=== PATIENT | female | born 1955 | race Caucasian/White ===

== ENCOUNTER 2016-10-13 19:26 | Observation (INO) ==
[2016-10-13] MEDS ORDERED: Ondansetron 4 MG/2 ML VIAL IVP ONE (20:35)
[2016-10-13] MEDS ORDERED: *HR* Morphine 2 MG/ML SYRINGE IVP ONE (20:35)
[2016-10-13] MEDS ORDERED: 0.9 % Sodium Chloride 1,000 ML IVC ONE (20:35)
[2016-10-13] MEDS ORDERED: MetroNIDAZOLE 500 MG/100 ML 500 MG/100 ML BAG IVPB ONE (20:36)
--- NOTE | 2016-10-13 20:39 | Emergency Department Note ---
Disposition Clinical Impression: Diverticulitis Disposition: Admitted As Inpatient Condition: Critical General Adult HPI - General Chief complaint: ED Abdominal Pain Stated complaint: abd pain Time Seen by Provider: 10/13/16 20:34 Source: patient Limitations: no limitations - History of Present Illness Pain Scale: 7 - Related Data Home Medications Medication Instructions Recorded Confirmed Aspirin 81 mg PO DAILY 02/01/16 10/13/16 Gabapentin [Neurontin] 400 mg PO BID 02/01/16 10/13/16 Levothyroxine [Synthroid] 50 mcg PO DAILY 02/01/16 10/13/16 Lisinopril [Zestril] 10 mg PO DAILY 02/01/16 10/13/16 Oxycodone HCl/Acetaminophen 1 tab PO BID PRN 02/01/16 10/13/16 [Percocet 5-325 mg Tablet] Venlafaxine XR (24 HR) [Effexor Xr] 300 mg PO DAILY 02/01/16 10/13/16 Albuterol Sulfate [Ventolin Hfa] 2 puff IH Q4H PRN 02/03/16 10/13/16 Cholecalciferol (Vitamin D3) 5,000 unit PO DAILY 02/03/16 10/13/16 [Vitamin D3] Cyclobenzaprine [Flexeril] 10 mg PO TID PRN 02/03/16 10/13/16 Insulin NPH Hum/Reg Insulin Hm 50 unit SQ BID 02/03/16 10/13/16 [Novolin 70-30 100 Unit/ml Vial] Omeprazole [PriLOSEC] 40 mg PO DAILY 02/03/16 10/13/16 Vitamin B Complex 1 each PO DAILY 02/03/16 10/13/16 Albuterol Neb [Proventil Neb] 2.5 mg IH TID PRN 06/29/16 10/13/16 LORazepam [Ativan] 0.5 mg PO BID PRN 06/29/16 10/13/16 Docusate [Colace] 100 mg PO DAILY 10/13/16 10/13/16 Pioglitazone HCl [Actos] 45 mg PO DAILY 10/13/16 10/13/16 Allergies Allergy/AdvReac Type Severity Reaction Status Date / Time ibuprofen Allergy Hives Verified 02/01/16 23:52 Penicillins [PCN] Allergy Hives Verified 02/01/16 23:52 Lsykxit-Rqc-Wey Reductase Allergy See Verified 10/13/16 19:54 Inhibitor Comments [Statins] Sulfa (Sulfonamide Allergy Hives Verified 02/01/16 23:52 Antibiotics) Nortriptyline [From Pamelor] AdvReac Agitated Verified 02/01/16 23:52 simvastatin [From Zocor] AdvReac Muscle Pain Verified 02/01/16 23:52 Past Medical History - Past Medical History Medical history: Reports: COPD, diabetes, fibromyalgia, hyperlipidemia, thyroid disease Surgical history: Reports: herniorrhaphy, hysterectomy Psychiatric history: Reports: depression LOAN REPRESENTATIVE history: Reports: no LOAN REPRESENTATIVE history - Social History Smoking Status: Former smoker Smokeless Tobacco Status: No Alcohol use: Reports: none Drug use: Reports: none Physical Exam - General Limitations: no limitations General appearance: alert, in no apparent distress Course Vital Signs Temperature 97.6 F 10/13/16 19:51 Pulse Rate 95 10/13/16 19:51 Respiratory Rate 18 10/13/16 19:51 Blood Pressure 128/72 10/13/16 19:51 O2 Sat by Pulse Oximetry 97 10/13/16 19:51 Temperature 97.6 F 10/13/16 19:51 Pulse Rate 86 10/13/16 20:53 Respiratory Rate 18 10/13/16 20:53 Blood Pressure 159/98 10/13/16 20:53 O2 Sat by Pulse Oximetry 96 10/13/16 20:53 Oxygen Delivery Oxygen Delivery Room Air Medical Decision Making - Lab Data Result diagrams: 10/13/16 21:39 10/13/16 21:39 Lab Results 10/13/16 10/13/16 Range/Units 21:39 21:39 WBC 7.4 (4.3-11.1) K/mcL RBC 4.74 (3.82-4.97) M/mcL Hgb 13.4 (11.5-15.4) g/dL Hct 41.4 (35.3-44.9) % MCV 87.3 (83.0-100.0) fL MCH 28.3 (28.0-33.3) pg MCHC 32.4 (31.6-35.5) g/dL RDW 13.2 (11.5-14.5) % Plt Count 269 (140-400) K/mcL MPV 9.3 L (9.4-12.4) fL Immature Gran % 0.3 (0-4) % Seg Neutrophils % 65.2 % Lymphocytes % 21.6 % Monocytes % 9.8 % Eosinophils % 2.7 % Basophils % 0.4 % Neutrophils # 4.8 (1.6-8.9) K/mcL Lymphocytes # 1.6 (0.6-4.6) K/mcL Monocytes # 0.7 (0.0-1.3) K/mcL Eosinophils # 0.2 (0.0-0.6) K/mcL Basophils # 0.0 (0.0-0.2) K/mcL Sodium 140 (136-145) mEq/L Potassium 4.1 (3.5-4.5) mEq/L Chloride 105 (98-109) mEq/L Carbon Dioxide 28 (19-29) mEq/L BUN 16 (7-20) mg/dL Creatinine 0.73 (0.57-1.11) mg/dL Est GFR ( Amer) > 60 (> 60) Est GFR (Non-Af Amer) > 60 (> 60) BUN/Creatinine Ratio 22 (6-26) Glucose 59 L (70-99) mg/dL Calculated Osmolality 289 (280-300) Calcium 9.5 (8.6-10.8) mg/dL Total Bilirubin 0.3 (0.2-1.2) mg/dL Direct Bilirubin 0.1 (0.0-0.5) mg/dL Indirect Bilirubin 0.2 (0.0-1.2) mg/dL AST 15 (5-34) Units/L ALT 13 (0-55) Units/L Alkaline Phosphatase 93 (38-126) Units/L Serum Total Protein 6.8 (6.0-8.3) g/dL Albumin 3.1 L (3.5-5.0) g/dL Globulin 3.7 H (2.4-3.5) g/dL Albumin/Globulin Ratio 0.8 L (1.1-2.2) Lipase 9 (8-78) Units/L Attestation Statement - Attestation Attestation: I examined this patient and my medical decision-making was reviewed with the TANKAGE GRINDER/PA/Advanced Practice Nurse/Resident Physician. I agree with the documented findings, disposition and treatment plan as described except to the extent set forth below. [id number] time provided Patient presents with left lower quadrant abdominal pain. She has a known history of diverticulosis and diverticulitis. She appears mildly uncomfortable but nontoxic on exam
--- NOTE | 2016-10-13 21:05 | Emergency Department Note ---
Disposition Clinical Impression: Diverticulitis Qualifiers: Diverticulitis site: large intestine Diverticulitis bleeding: without bleeding Diverticulitis complication: without perforation or abscess Qualified Code(s): K57.32 - Diverticulitis of large intestine without perforation or abscess without bleeding Disposition: Admitted As Inpatient Condition: Critical Referrals: Zeyad Jules MD [Primary Care Provider] - Forms: ED Satisfaction Letter, Work/School Release Abdominal Pain HPI - General Chief Complaint: ED Abdominal Pain Stated Complaint: abd pain Time Seen by Provider: 10/13/16 20:34 Source: patient Nursing Notes Reviewed: Yes Vital Signs Reviewed: Yes - History of Present Illness HPI Narrative: Ms. Bran, a 60yo female, presents from home which he complained of abdominal pain. Onset 4 days ago. Localized left lower quadrant and migrating across her lower abdomen. Described as a constant sharp stabbing. Worsened with bowel movement and deterioration. Patient was instructed by her GI doctor to never Valsalva as she has a history of diverticulitis with microperforation. Patient states this episode feels identical to previous episodes of diverticulitis. Gum Remover: Dr. Souza. PMH: DM II, EMILY on BiPap. Admits: Left lower quadrant pain. Denies: Fever, chills, change in appetite, melena, hematochezia, spotting on toilet tissue, chest pain, palpitations, back pain, nausea, vomiting. Pain Scale: 7 - Related Data Home Medications Medication Instructions Recorded Confirmed Aspirin 81 mg PO DAILY 02/01/16 06/29/16 Gabapentin [Neurontin] 400 mg PO BID 02/01/16 06/29/16 Krill Oil 500 mg PO BID 02/01/16 06/29/16 LORazepam [Ativan] 0.5 mg PO TID PRN 02/01/16 06/29/16 Levothyroxine [Synthroid] 50 mcg PO DAILY 02/01/16 06/29/16 Lisinopril [Zestril] 10 mg PO DAILY 02/01/16 06/29/16 Oxycodone HCl/Acetaminophen 1 tab PO BID PRN MDD with 02/01/16 06/29/16 [Percocet 5-325 mg Tablet] occasional 3rd tablet Venlafaxine XR (24 HR) [Effexor Xr] 300 mg PO DAILY 02/01/16 06/29/16 Albuterol Sulfate [Ventolin Hfa] 2 puff IH Q4H PRN 02/03/16 06/29/16 Cholecalciferol (Vitamin D3) 5,000 unit PO DAILY 02/03/16 06/29/16 [Vitamin D3] Cyclobenzaprine [Flexeril] 10 mg PO TID PRN 02/03/16 06/29/16 Exenatide Microspheres [Bydureon] 2 mg SQ QWEEK 02/03/16 06/29/16 Insulin NPH Hum/Reg Insulin Hm 40 unit SQ QPM 02/03/16 06/29/16 [Novolin 70-30 100 Unit/ml Vial] Insulin NPH Hum/Reg Insulin Hm 50 unit SQ QAM 02/03/16 06/29/16 [Novolin 70-30 100 Unit/ml Vial] Omeprazole [PriLOSEC] 40 mg PO DAILY 02/03/16 06/29/16 Vitamin B Complex 1 each PO DAILY 02/03/16 06/29/16 Albuterol Neb [Proventil Neb] 2.5 mg IH AD PRN 06/29/16 06/29/16 LORazepam [Ativan] 0.5 mg PO BID PRN 06/29/16 06/29/16 Previous Rx's Medication Instructions Recorded Ciprofloxacin HCl [Cipro] 500 mg PO BID #24 tab 02/04/16 Docusate [Colace] 100 mg PO BID PRN #60 capsule 02/04/16 Omeprazole 20 mg PO QDPC #21 tablet. 05/02/16 Ondansetron ODT [Zofran ODT] 4 mg SL Q6HR PRN #14 tab.rapdis 05/02/16 Allergies Allergy/AdvReac Type Severity Reaction Status Date / Time ibuprofen Allergy Hives Verified 02/01/16 23:52 Penicillins [PCN] Allergy Hives Verified 02/01/16 23:52 Jebpgqq-Tno-Nkg Reductase Allergy See Verified 10/13/16 19:54 Inhibitor Comments [Statins] Sulfa (Sulfonamide Allergy Hives Verified 02/01/16 23:52 Antibiotics) Nortriptyline [From Pamelor] AdvReac Agitated Verified 02/01/16 23:52 simvastatin [From Zocor] AdvReac Muscle Pain Verified 02/01/16 23:52 All systems ED: reviewed and negative except as stated. (As per history of present illness.) Abdominal Pain PMH - Past Medical History Medical history: Reports: COPD, diabetes, fibromyalgia, hyperlipidemia, thyroid disease Female Surgical History: Reports: appendectomy, hysterectomy DOOR CLAMP OPERATOR history: Reports: no DOOR CLAMP OPERATOR history Psychiatric history: Reports: depression - Social History Smoking status: Former smoker Alcohol use: Reports: none Drug use: Reports: none Physical Exam General: Patient is alert, oriented, and in no acute distress. HEENT: No facial asymmetry. Head is normocephalic and atraumatic. Trachea midline. Cardiovascular: Heart regular rate and rhythm without clicks, rubs, gallops, or murmurs. No JVD. PMI nondisplaced. Respiratory: Symmetric chest rise with good respiratory effort. Bilateral breath sounds are clear without wheezing, crackles, or rhonchi. Abdomen: Obese. Bowel sounds present normoactive x-4 quadrants. Abdomen is soft, nondistended. Abdominal tenderness most prominent in left lower quadrant with extension into the hypogastrium. Unable to assess for organomegaly given patient's body habitus. Psych: Patient's affect is appropriate for situation. - General Limitations: no limitations General appearance: alert, in no apparent distress Course Course Narrative: A chart review, patient is not had any imaging of her abdomen in some time. I am concerned given her history of microperforations. We will CT her abdomen and pelvis without contrast at this time. We will also provide IV rehydration, IV analgesia, and begin empiric antibiotics. Will also continue workup for other abdominal pathologies. Patient's lab work does not show leukocytosis. CT scan shows sigmoid diverticulitis without abscess. Abdomen/Pelvis CT 10/13/16 20:38 IMPRESSION: 1. Acute proximal sigmoid diverticulitis. No abscess. 2. Cholelithiasis. D/ / 10/13/2016 21:31:26 Bolivar Banks MD / sadie Interpreting Provider: Bolivar Banks MD Patient's pain is moderately controlled with IV medications. I have clinical concern is she has a history of diverticulitis with microperforation. After speaking with the patient, together we came to the decision for admission. I spoke with the admitting hospitalist,Dr. Acuña, agrees to accept the patient. At the request of Dr. Acuña, will add Levaquin to her Flagyl. Vital Signs Temperature 97.6 F 10/13/16 19:51 Pulse Rate 95 10/13/16 19:51 Respiratory Rate 18 10/13/16 19:51 Blood Pressure 128/72 10/13/16 19:51 O2 Sat by Pulse Oximetry 97 10/13/16 19:51 Temperature 97.6 F 10/13/16 19:51 Pulse Rate 86 10/13/16 20:53 Respiratory Rate 18 10/13/16 20:53 Blood Pressure 159/98 10/13/16 20:53 O2 Sat by Pulse Oximetry 96 10/13/16 20:53 Oxygen Delivery Oxygen Delivery Room Air Abdominal Pain - Lab Data Result diagrams: 10/13/16 21:39 10/13/16 21:39 Lab Results 10/13/16 10/13/16 Range/Units 21:39 21:39 WBC 7.4 (4.3-11.1) K/mcL RBC 4.74 (3.82-4.97) M/mcL Hgb 13.4 (11.5-15.4) g/dL Hct 41.4 (35.3-44.9) % MCV 87.3 (83.0-100.0) fL MCH 28.3 (28.0-33.3) pg MCHC 32.4 (31.6-35.5) g/dL RDW 13.2 (11.5-14.5) % Plt Count 269 (140-400) K/mcL MPV 9.3 L (9.4-12.4) fL Immature Gran % 0.3 (0-4) % Seg Neutrophils % 65.2 % Lymphocytes % 21.6 % Monocytes % 9.8 % Eosinophils % 2.7 % Basophils % 0.4 % Neutrophils # 4.8 (1.6-8.9) K/mcL Lymphocytes # 1.6 (0.6-4.6) K/mcL Monocytes # 0.7 (0.0-1.3) K/mcL Eosinophils # 0.2 (0.0-0.6) K/mcL Basophils # 0.0 (0.0-0.2) K/mcL Sodium 140 (136-145) mEq/L Potassium 4.1 (3.5-4.5) mEq/L Chloride 105 (98-109) mEq/L Carbon Dioxide 28 (19-29) mEq/L BUN 16 (7-20) mg/dL Creatinine 0.73 (0.57-1.11) mg/dL Est GFR ( Amer) > 60 (> 60) Est GFR (Non-Af Amer) > 60 (> 60) BUN/Creatinine Ratio 22 (6-26) Glucose 59 L (70-99) mg/dL Calculated Osmolality 289 (280-300) Calcium 9.5 (8.6-10.8) mg/dL Total Bilirubin 0.3 (0.2-1.2) mg/dL Direct Bilirubin 0.1 (0.0-0.5) mg/dL Indirect Bilirubin 0.2 (0.0-1.2) mg/dL AST 15 (5-34) Units/L ALT 13 (0-55) Units/L Alkaline Phosphatase 93 (38-126) Units/L Serum Total Protein 6.8 (6.0-8.3) g/dL Albumin 3.1 L (3.5-5.0) g/dL Globulin 3.7 H (2.4-3.5) g/dL Albumin/Globulin Ratio 0.8 L (1.1-2.2) Lipase 9 (8-78) Units/L
[2016-10-13 21:58] LABS: Basophils % 0.4 %; Eosinophils # 0.2 K/mcL (0.0-0.6); Eosinophils % 2.7 %; Hematocrit 41.4 % (35.3-44.9); Hemoglobin 13.4 g/dL (11.5-15.4); Immature Granulocytes % 0.3 % (0-4); Lymphocytes # 1.6 K/mcL (0.6-4.6); Lymphocytes % 21.6 %; Mean Corpuscular HGB Conc 32.4 g/dL (31.6-35.5); Mean Corpuscular Hemoglobin 28.3 pg (28.0-33.3); Mean Corpuscular Volume 87.3 fL (83.0-100.0); Mean Platelet Volume 9.3 fL (9.4-12.4); Monocytes # 0.7 K/mcL (0.0-1.3); Monocytes % 9.8 %; Neutrophils # 4.8 K/mcL (1.6-8.9); Platelet Count 269 K/mcL (140-400); Red Blood Count 4.74 M/mcL (3.82-4.97); Red Cell Distribution Width 13.2 % (11.5-14.5); Segmented Neutrophils % 65.2 %
[2016-10-13 22:09] LABS: Alanine Aminotransferase 13 Units/L (0-55); Albumin 3.1 g/dL (3.5-5.0); Albumin/Globulin Ratio 0.8 (1.1-2.2); Alkaline Phosphatase 93 Units/L (38-126); Aspartate Amino Transferase 15 Units/L (5-34); BUN/Creatinine Ratio 22 (6-26); Bilirubin,Direct 0.1 mg/dL (0.0-0.5); Bilirubin,Indirect 0.2 mg/dL (0.0-1.2); Bilirubin,Total 0.3 mg/dL (0.2-1.2); Blood Urea Nitrogen 16 mg/dL (7-20); Calcium 9.5 mg/dL (8.6-10.8); Carbon Dioxide 28 mEq/L (19-29); Chloride 105 mEq/L (98-109); Globulin 3.7 g/dL (2.4-3.5); Glucose 59 mg/dL (70-99); Lipase 9 Units/L (8-78); Osmolality,Calculated 289 (280-300); Potassium 4.1 mEq/L (3.5-4.5); Sodium 140 mEq/L (136-145); Total Protein 6.8 g/dL (6.0-8.3); eGFR For African Americans > 60 (> 60); eGFR For Non-African Americans > 60 (> 60)
[2016-10-13] MEDS ORDERED: Levofloxacin 750 MG/150 ML 750 MG/150 ML BAG IVPB ONE (22:31)
[2016-10-13] MEDS ORDERED: Acetaminophen 325 MG TABLET PO PRN (23:31)
[2016-10-13] MEDS ORDERED: Ondansetron 4 MG/2 ML VIAL IVP PRN (23:31)
[2016-10-13] MEDS ORDERED: *HR* Promethazine 25 MG/ML VIAL IVP PRN (23:31)
[2016-10-13] MEDS ORDERED: Naloxone 0.4 MG/ML INJ IVP PRN (23:31)
[2016-10-13] MEDS ORDERED: *HR* Morphine 2 MG/ML SYRINGE IVP PRN (23:31)
[2016-10-13] MEDS ORDERED: D5% in 0.45% NACL 1,000 ML IVC SCH (23:45)
[2016-10-14] MEDS: Acetaminophen IV 1,000 MG/100 ML INFUS..BTL IVPB SCH ×4 (00:53→18:01)
[2016-10-14] MEDS ORDERED: D5% in Water 1,000 ML IV PRN ×2 (01:13→03:18)
[2016-10-14] MEDS ORDERED: *HR* Dextrose 50 % in Water (Syg) 50 ML SYRINGE IVP PRN ×2 (01:13→03:18)
[2016-10-14] MEDS ORDERED: Dextrose Gel 15 GM PO PRN ×4 (01:13→03:18)
[2016-10-14] MEDS: D5% in 0.9% NACL 1,000 ML IVC SCH ×2 (01:30→13:13)
--- NOTE | 2016-10-14 03:05 | Internal Med History&Physical ---
Date of Encounter: 10/13/16 Time of Encounter: 22:40 Assessment and Plan (1) Diverticulitis Current visit: Yes Status: Acute We will treat the patient on Levaquin and Flagyl. Pain control. Bowel rest. We will consult general surgery for further evaluation for possible need for colectomy due to frequent and recurring bouts of diverticulitis. She is at high risk for morbidity mortality and complications due to treatment with IV opiates for pain control. Qualifiers: Diverticulitis site: large intestine Diverticulitis bleeding: without bleeding Diverticulitis complication: without perforation or abscess Qualified Code(s): K57.32 - Diverticulitis of large intestine without perforation or abscess without bleeding (2) DVT prophylaxis Current visit: No Status: Acute Subcutaneous Lovenox. (3) Peripheral sensory neuropathy due to type 2 diabetes mellitus Current visit: No Status: Acute He is insulin Levemir and sliding scale. (4) COPD (chronic obstructive pulmonary disease) Current visit: No Status: Chronic Inhaled albuterol. Qualifiers: COPD type: unspecified COPD Qualified Code(s): J44.9 - Chronic obstructive pulmonary disease, unspecified (5) Diabetes mellitus, type II Current visit: No Status: Chronic Low-dose insulin Levemir and low-dose sliding scale while the patient is nothing by mouth. Qualifiers: Diabetes mellitus complication status: with neurologic complications Diabetes mellitus complication detail: with polyneuropathy Diabetes mellitus residential insulin use: with termite technician use Qualified Code(s): E11.42 - Type 2 diabetes mellitus with diabetic polyneuropathy (6) EMILY on CPAP Current visit: No Status: Chronic Resume her home CPAP regimen. Internal Medicine - H&P: HPI Chief complaint: Abdominal pain Admitted From: Emergency Dept Plans for Post Hospital Care: Home History of present illness: Ms. Bran is a 60 year old female with multiple medical comorbidities who presented to the hospital for evaluation of lower abdominal pain which she describes as sharp moderate to severe progressive over the last 4 days associated with nausea no vomiting diarrhea blood in the stool. She reports associated chills but no fever. Today the pain was 10/10 and she decided to come to the hospital. She has had similar pain in the past when she had diverticulitis which she did have 3 times last year. A 10 point review of systems was performed pertinent positives as above additionally positive for chronic shortness of breath, dyspnea on exertion positive for decreased sensation secondary to neuropathy. Family history reviewed and found to be noncontributory. Past Med Surg Social Fam HX - Past Medical History Medical history: COPD, diabetes, fibromyalgia, hyperlipidemia, thyroid disease Psychiatric history: depression - Past Surgical History Surgical History: herniorrhaphy, hysterectomy - Social History Smoking Status: Former smoker Smokeless Tobacco Status: No Alcohol use: none Drug use: none - Family History Mother Living Status: Hx Family Cardiac Disorders: Yes (heart disease) Hx Family Respiratory Disorders: Yes (copd) Hx Family Cancer: Yes (renal ca) Hx Family GI Disorders: No Internal Medicine - H&P: Meds Aspirin 81 mg PO DAILY 02/01/16 [History] Gabapentin [Neurontin] 400 mg PO BID 02/01/16 [History] Levothyroxine [Synthroid] 50 mcg PO DAILY 02/01/16 [History] Lisinopril [Zestril] 10 mg PO DAILY 02/01/16 [History] Oxycodone HCl/Acetaminophen [Percocet 5-325 mg Tablet] 1 tab PO BID PRN [History] Venlafaxine XR (24 HR) [Effexor Xr] 300 mg PO DAILY 02/01/16 [History] Albuterol Sulfate [Ventolin Hfa] 2 puff IH Q4H PRN 02/03/16 [History] Cholecalciferol (Vitamin D3) [Vitamin D3] 5,000 unit PO DAILY 02/03/16 [History] Cyclobenzaprine [Flexeril] 10 mg PO TID PRN 02/03/16 [History] Insulin NPH Hum/Reg Insulin Hm [Novolin 70-30 100 Unit/ml Vial] 50 unit SQ BID 02/03/16 [History] Omeprazole [PriLOSEC] 40 mg PO DAILY 02/03/16 [History] Vitamin B Complex 1 each PO DAILY 02/03/16 [History] Albuterol Neb [Proventil Neb] 2.5 mg IH TID PRN 06/29/16 [History] LORazepam [Ativan] 0.5 mg PO BID PRN 06/29/16 [History] Docusate [Colace] 100 mg PO DAILY 10/13/16 [History] Pioglitazone HCl [Actos] 45 mg PO DAILY 10/13/16 [History] Allergies ibuprofen Allergy (Verified 02/01/16 23:52) Hives Penicillins [PCN] Allergy (Verified 02/01/16 23:52) Hives Ozbejnu-Uyh-Srm Reductase Inhibitor [Statins] Allergy (Verified 10/13/16 19:54) See Comments Sulfa (Sulfonamide Antibiotics) Allergy (Verified 02/01/16 23:52) Hives Nortriptyline [From Pamelor] Adverse Reaction (Verified 02/01/16 23:52) Agitated simvastatin [From Zocor] Adverse Reaction (Verified 02/01/16 23:52) Muscle Pain All Systems PM: A 10-system review of systems was performed and is negative for pertinent findings except as documented above in the HPI. - Constitutional Vitals: Temp Pulse Resp BP Pulse Ox 97.5 F L 88 14 97/56 97 10/14/16 00:55 10/14/16 00:55 10/14/16 00:55 10/14/16 00:55 10/14/16 00:55 - Respiratory Respiratory exam: Present: CTAB. Absent: accessory muscle use, rales, rhonchi, wheezes - Cardiovascular Cardiovascular exam: Present: RRR, +S1, +S2. Absent: diastolic murmur, gallop, rubs, systolic murmur - GI/Abdominal GI/Abdominal exam: Present: normal bowel sounds, soft, tenderness, no peritoneal signs. Absent: distended - Extremities Exam Extremities exam: Present: warm, radial pulses palpable and symetrical. Absent : calf tenderness, cyanotic, pedal edema - Neurological Exam Neurological exam: Present: CN II-XII intact, oriented X3, no focal deficits. Absent: pronater drift, facial droop, speech deficit - Skin Skin exam: Present: dry, intact Internal Med - H&P Results - Labs CBC & Chem 7: 10/13/16 21:39 10/13/16 21:39 - Impressions Her old recurrence patient had a colonoscopy in June 2016 which showed colonic diverticuli and one small polyp was removed. No evidence of gross inflammation of the time.
[2016-10-14] MEDS ORDERED: *HR* OxyCODONE/APAP 5/325 TABLET PO PRN (03:20)
[2016-10-14] MEDS ORDERED: *HR* LORazepam 0.5 MG TABLET PO PRN (03:20)
[2016-10-14] MEDS ORDERED: Albuterol 2.5 MG/3 ML NEBULIZER IH PRN (03:20)
[2016-10-14 04:15] LABS: Bilirubin,Urine Negative (Negative); Blood,Urine Negative (Negative); Clarity,Urine Clear (Clear); Color,Urine Yellow (Yellow); Glucose,Urine (UA) Normal (Normal); Ketones,Urine Negative (Negative); Leukocyte Esterase,Urine Negative (Negative); Nitrite,Urine Negative (Negative); PH,Urine 5.5 pH Units (5.0-8.0); Protein,Urine Negative (Neg-Trace); Specific Gravity,Urine >= 1.030 (1.010-1.025); Urobilinogen,Urine Normal (Normal)
[2016-10-14] MEDS: Insulin LISPRO 300 UNITS/3 ML VIAL SQ SCH ×3 (05:53→17:34)
[2016-10-14 06:09] LABS: Basophils % 0.4 %; Eosinophils # 0.1 K/mcL (0.0-0.6); Hematocrit 39.1 % (35.3-44.9); Hemoglobin 12.5 g/dL (11.5-15.4); Immature Granulocytes % 0.5 % (0-4); Lymphocytes # 1.2 K/mcL (0.6-4.6); Lymphocytes % 15.5 %; Mean Corpuscular Hemoglobin 28.7 pg (28.0-33.3); Mean Corpuscular Volume 89.7 fL (83.0-100.0); Mean Platelet Volume 9.6 fL (9.4-12.4); Monocytes # 0.6 K/mcL (0.0-1.3); Monocytes % 7.5 %; Neutrophils # 5.9 K/mcL (1.6-8.9); Platelet Count 246 K/mcL (140-400); Red Blood Count 4.36 M/mcL (3.82-4.97); Red Cell Distribution Width 13.2 % (11.5-14.5); Segmented Neutrophils % 75.1 %
[2016-10-14 06:19] LABS: Hemoglobin A1C 6.9 %
[2016-10-14 06:21] LABS: BUN/Creatinine Ratio 19 (6-26); Blood Urea Nitrogen 14 mg/dL (7-20); Calcium 8.7 mg/dL (8.6-10.8); Carbon Dioxide 31 mEq/L (19-29); Chloride 105 mEq/L (98-109); Glucose 106 mg/dL (70-99); Magnesium 1.8 mg/dL (1.6-2.6); Osmolality,Calculated 291 (280-300); Potassium 4.6 mEq/L (3.5-4.5); Sodium 140 mEq/L (136-145); eGFR For African Americans > 60 (> 60); eGFR For Non-African Americans > 60 (> 60)
[2016-10-14] MEDS: Aspirin 81 MG TAB.CHEW PO SCH (08:58)
[2016-10-14] MEDS: Gabapentin 400 MG CAPSULE PO SCH ×2 (08:59→21:16)
[2016-10-14] MEDS: MetroNIDAZOLE 500 MG/100 ML 500 MG/100 ML BAG IVPB SCH ×2 (08:59→16:25)
[2016-10-14] MEDS: Venlafaxine XR (24 HR) 150 MG CAP.ER.24H PO SCH (08:59)
[2016-10-14] MEDS ORDERED: Levofloxacin 750 MG/150 ML 750 MG/150 ML BAG IVPB SCH (09:00)
[2016-10-14] MEDS: Insulin DETEMIR 100 UNIT/ML X5UNITS SQ SCH (09:03)
--- NOTE | 2016-10-14 10:18 | Internal Med Progress Note ---
Date of Encounter: 10/14/16 Time of Encounter: 10:16 - Assessment and plan (1) Diverticulitis Current Visit: Yes Status: Acute Assessment and plan: Improving slowly. Continue IV Levaquin and Flagyl. Keep nothing by mouth for now, ice chips that allowed and continue IV hydration. Plan to start clear liquid diet later today if symptoms are better controlled. Patient noted to undergo recent colonoscopy about 3 months back that showed diverticulosis with no active bleeding and a colonic polyp that was removed. Surgery has been consulted, will follow-up recommendations. Qualifiers: Diverticulitis site: large intestine Diverticulitis bleeding: without bleeding Diverticulitis complication: without perforation or abscess Qualified Code(s): K57.32 - Diverticulitis of large intestine without perforation or abscess without bleeding (2) Depression Current Visit: Yes Status: Chronic Qualifiers: Depression Type: unspecified Qualified Code(s): F32.9 - Major depressive disorder, single episode, unspecified (3) Morbid obesity Current Visit: Yes Status: Chronic Qualifiers: Obesity type: due to excess calories Qualified Code(s): E66.01 - Morbid ( severe) obesity due to excess calories (4) COPD (chronic obstructive pulmonary disease) Current Visit: Yes Status: Chronic Assessment and plan: Not noted to be in acute exacerbation. Continue as needed bronchodilators and supplemental oxygen. Physical and occupational therapy evaluation. Qualifiers: COPD type: unspecified COPD Qualified Code(s): J44.9 - Chronic obstructive pulmonary disease, unspecified (5) Diabetes mellitus, type II Current Visit: Yes Status: Chronic Assessment and plan: Accu-Chek blood glucose monitoring with basal bolus insulin regimen. Diabetic diet when tolerated. Qualifiers: Diabetes mellitus complication status: with neurologic complications Diabetes mellitus complication detail: with polyneuropathy Diabetes mellitus medical terminologist insulin use: with fdc use Qualified Code(s): E11.42 - Type 2 diabetes mellitus with diabetic polyneuropathy (6) EMILY on CPAP Current Visit: Yes Status: Chronic - Subjective Interval history: Feels better; improving abdominal pain; no nausea, vomiting, diarrhea; - Constitutional Vitals: Temp Pulse Resp BP Pulse Ox 97.7 F 79 16 99/76 99 10/14/16 07:54 10/14/16 07:54 10/14/16 08:24 10/14/16 07:54 10/14/16 08:24 General appearance: Present: A&O X 3, morbidly obese, answers questions appropriately - Respiratory Respiratory exam: Present: CTAB. Absent: accessory muscle use, rales, rhonchi, wheezes - Cardiovascular Cardiovascular exam: Present: RRR, +S1, +S2. Absent: diastolic murmur, gallop, rubs, systolic murmur - GI/Abdominal GI/Abdominal exam: Present: normal bowel sounds, soft (obese, tenderness in LLQ ; no guarding/rigidity), no peritoneal signs. Absent: distended, tenderness - Extremities Exam Extremities exam: Present: full ROM, warm, radial pulses palpable and symetrical. Absent: calf tenderness, cyanotic, pedal edema Internal Medicine: Result - Labs CBC & Chem 7: 10/14/16 05:03 10/14/16 05:03 Labs: Short CBC 10/14/16 Range/Units 05:03 WBC 7.9 (4.3-11.1) K/mcL Hgb 12.5 (11.5-15.4) g/dL Hct 39.1 (35.3-44.9) % Plt Count 246 (140-400) K/mcL Neutrophils # 5.9 (1.6-8.9) K/mcL BMP 10/14/16 05:03 Sodium 140 Potassium 4.6 H Chloride 105 Carbon Dioxide 31 H BUN 14 Creatinine 0.72 Glucose 106 H Calcium 8.7 Urine 10/14/16 Range/Units 02:46 Urine Color Yellow (Yellow) Urine Clarity Clear (Clear) Urine pH 5.5 (5.0-8.0) pH Units Ur Specific [place] >= 1.030 H (1.010-1.025) Urine Protein Negative (Neg-Trace) mg/dL Urine Glucose (UA) Normal (Normal) mg/dL Consult Discharge Plan - Plan Referrals: Zeyad Jules MD [Primary Care Provider] -
--- NOTE | 2016-10-14 13:27 | General Surgery Consult Note ---
Date of Encounter: 10/14/16 Time of Encounter: 13:00 Assessment and Plan (1) Diverticulitis Current Visit: Yes Status: Acute Treat with conservative approach- no urgent surgical intervention indicated at this time May give clear liquids with diabetic modifications IV antibiotics- levaquin and flagyl Supportive care and pain control Serial abdominal exams Will need outpatient follow-up in surgery office (requesting Dr. Tatum) Consider interval colonoscopy in 6-8 weeks Qualifiers: Diverticulitis site: large intestine Diverticulitis bleeding: without bleeding Diverticulitis complication: without perforation or abscess Qualified Code(s): K57.32 - Diverticulitis of large intestine without perforation or abscess without bleeding (2) Diabetes mellitus, type II Current Visit: Yes Status: Chronic controlled management per medicine service Qualifiers: Diabetes mellitus complication status: with neurologic complications Diabetes mellitus complication detail: with polyneuropathy Diabetes mellitus retirement insulin use: with retirement use Qualified Code(s): E11.42 - Type 2 diabetes mellitus with diabetic polyneuropathy (3) Morbid obesity Current Visit: Yes Status: Chronic Qualifiers: Obesity type: due to excess calories Qualified Code(s): E66.01 - Morbid ( severe) obesity due to excess calories (4) EMILY on CPAP Current Visit: Yes Status: Chronic (5) Chronic back pain Current Visit: No Status: Chronic Qualifiers: Back pain location: low back pain Back pain laterality: midline Sciatica presence: without sciatica Qualified Code(s): M54.5 - Low back pain History of Present Illness Consult date: 10/14/16 Reason for consult: other (Diverticulitis) Requesting physician: Hao Batres History of present illness: Ms. Bran is a 60 year old female with a past medical history significant for type 2 diabetes mellitus, hyperlipidemia, anxiety/depression, fibromyalgia, obesity, arthritis, GERD, neuropathy, mitral valve prolapse, osteoarthritis, hypothyroidism, acute diverticulitis, sleep apnea, DDD. She presents to the hospital with a 4 to five-day history of left lower quadrant abdominal pain. She states that she has had pain similar to this in the past and it was associated with diverticulitis. This is her second hospitalization related to diverticulitis. Last hospitalized in January of 2016 and is s/p EGD/colonoscopy with Dr. Souza in June of 2016. She reports have a total of 4-5 episodes similar to this in the past 1 year. Admits to nausea but denies any vomiting. Denies any changes in bowel movements. Last bowel movement yesterday. Denies any melena or hemaochezia. Denies any fevers but does admit to chills. Denies any difficulty with urination. She has had a CT scan which shows evidence of diverticulitis of the sigmoid colon without abscess or perforation. We have been asked to see and evaluate the patient for recommendations. Past Med Surg Social Fam HX - Past Medical History Source: old records reviewed Medical history: COPD, diabetes (Type 2), fibromyalgia, GERD, hyperlipidemia, thyroid disease (hypothyroidism), other (fibromyalgia, obesity, OA, neuropathy, chronic pain syndrome, diverticulitis, mitral valve prolapse, DDD, sleep apnea) Psychiatric history: anxiety, depression - Past Surgical History Surgical History: herniorrhaphy (left inguinal), hysterectomy, orthopedic, other (back surgery, bilateral knee arthroscopy), other (EGD/Colonoscopy 2015 (Dr. Souza)) - Social History Smoking Status: Former smoker Smokeless Tobacco Status: No Alcohol use: none Drug use: none - Family History Mother Living Status: Hx Family Cardiac Disorders: Yes (heart disease) Hx Family Respiratory Disorders: Yes (copd) Hx Family Cancer: Yes (renal ca) Hx Family GI Disorders: No Medications and Allergies Aspirin 81 mg PO DAILY 02/01/16 [History] Gabapentin [Neurontin] 400 mg PO BID 02/01/16 [History] Levothyroxine [Synthroid] 50 mcg PO DAILY 02/01/16 [History] Lisinopril [Zestril] 10 mg PO DAILY 02/01/16 [History] Oxycodone HCl/Acetaminophen [Percocet 5-325 mg Tablet] 1 tab PO BID PRN [History] Venlafaxine XR (24 HR) [Effexor Xr] 300 mg PO DAILY 02/01/16 [History] Albuterol Sulfate [Ventolin Hfa] 2 puff IH Q4H PRN 02/03/16 [History] Cholecalciferol (Vitamin D3) [Vitamin D3] 5,000 unit PO DAILY 02/03/16 [History] Cyclobenzaprine [Flexeril] 10 mg PO TID PRN 02/03/16 [History] Insulin NPH Hum/Reg Insulin Hm [Novolin 70-30 100 Unit/ml Vial] 50 unit SQ BID 02/03/16 [History] Omeprazole [PriLOSEC] 40 mg PO DAILY 02/03/16 [History] Vitamin B Complex 1 each PO DAILY 02/03/16 [History] Albuterol Neb [Proventil Neb] 2.5 mg IH TID PRN 06/29/16 [History] LORazepam [Ativan] 0.5 mg PO BID PRN 06/29/16 [History] Docusate [Colace] 100 mg PO DAILY 10/13/16 [History] Pioglitazone HCl [Actos] 45 mg PO DAILY 10/13/16 [History] Allergies ibuprofen Allergy (Verified 02/01/16 23:52) Hives Penicillins [PCN] Allergy (Verified 02/01/16 23:52) Hives Abdwagk-Jhw-Nza Reductase Inhibitor [Statins] Allergy (Verified 10/13/16 19:54) See Comments Sulfa (Sulfonamide Antibiotics) Allergy (Verified 02/01/16 23:52) Hives Nortriptyline [From Pamelor] Adverse Reaction (Verified 02/01/16 23:52) Agitated simvastatin [From Zocor] Adverse Reaction (Verified 02/01/16 23:52) Muscle Pain Review of Systems All systems PM: reviewed and no additional remarkable complaints except as stated (in the HPI) All systems PM: A 10-system review of systems was performed and is negative for pertinent findings except as documented above in the HPI. General Surgery Exam Initial Vital Signs Temp Pulse Resp BP Pulse Ox 97.6 F 95 18 128/72 97 10/13/16 19:51 10/13/16 19:51 10/13/16 19:51 10/13/16 19:51 10/13/16 19:51 - General physical appearance well developed, well nourished, no distress, obese - Eyes normal ocular movement - ENT normal mucosa, atraumatic, normocephalic - Neck trachea midline - Respiratory normal respiratory effort, clear to auscultation - Cardiovascular Cardiovascular exam: Present: RRR - Abdomen Abdomen general surgery: Present: bowel sounds present, soft, tender Abdominal Tenderness: Present: LLQ - Integumentary Integumentary general surgery: Present: warm and dry - Neurologic Present: CN 2-12 grossly intact - Psychiatric Psychiatric general surgery: Present: appropriate, oriented to person, oriented to place, oriented to time, speech is normal, memory intact Exam Initial Vital Signs Temp Pulse Resp BP Pulse Ox 97.6 F 95 18 128/72 97 10/13/16 19:51 10/13/16 19:51 10/13/16 19:51 10/13/16 19:51 10/13/16 19:51 Results - Labs 10/14/16 05:03 10/14/16 05:03 Abnormal lab results Potassium 4.6 mEq/L (3.5-4.5) H 10/14/16 05:03 Carbon Dioxide 31 mEq/L (19-29) H 10/14/16 05:03 Glucose 106 mg/dL (70-99) H 10/14/16 05:03 POC Glucose 113 (58-89) H 10/14/16 12:13 Hemoglobin A1c 6.9 % (-5.6) H 10/14/16 05:03 Albumin 3.1 g/dL (3.5-5.0) L 10/13/16 21:39 Globulin 3.7 g/dL (2.4-3.5) H 10/13/16 21:39 Albumin/Globulin Ratio 0.8 (1.1-2.2) L 10/13/16 21:39 Ur Specific [place] >= 1.030 (1.010-1.025) H 10/14/16 02:46 Diabetes panel 10/14/16 10/14/16 Range/Units 05:03 05:03 Sodium 140 (136-145) mEq/L Potassium 4.6 H (3.5-4.5) mEq/L Chloride 105 (98-109) mEq/L Carbon Dioxide 31 H (19-29) mEq/L BUN 14 (7-20) mg/dL Creatinine 0.72 (0.57-1.11) mg/dL Glucose 106 H (70-99) mg/dL Hemoglobin A1c 6.9 H ( - 5.6) % Calcium 8.7 (8.6-10.8) mg/dL Calcium panel 10/14/16 Range/Units 05:03 Calcium 8.7 (8.6-10.8) mg/dL Pituitary panel 10/14/16 Range/Units 05:03 Sodium 140 (136-145) mEq/L Potassium 4.6 H (3.5-4.5) mEq/L Chloride 105 (98-109) mEq/L Carbon Dioxide 31 H (19-29) mEq/L BUN 14 (7-20) mg/dL Creatinine 0.72 (0.57-1.11) mg/dL Glucose 106 H (70-99) mg/dL Calcium 8.7 (8.6-10.8) mg/dL Adrenal panel 10/14/16 Range/Units 05:03 Sodium 140 (136-145) mEq/L Potassium 4.6 H (3.5-4.5) mEq/L Chloride 105 (98-109) mEq/L Carbon Dioxide 31 H (19-29) mEq/L BUN 14 (7-20) mg/dL Creatinine 0.72 (0.57-1.11) mg/dL Glucose 106 H (70-99) mg/dL Calcium 8.7 (8.6-10.8) mg/dL All other labs normal. - Imaging CT scan - abdomen: report reviewed CT scan - pelvis: report reviewed Additional studies: Abdomen/Pelvis CT 10/13/16 20:38 IMPRESSION: 1. Acute proximal sigmoid diverticulitis. No abscess. 2. Cholelithiasis. D/ / 10/13/2016 21:31:26 Bolivar Banks MD / sadie Interpreting Provider: Bolivar Banks MD Consult Discharge Plan - Plan Additional Instructions: Low residue diet for 6 weeks Referrals: Zeyad Jules MD [Primary Care Provider] - Jostin Tatum MD [Partnered Physician] - 10/28/16 2:05 pm (hospital follow- up) - Attending Attestation I examined this patient and my medical decision-making was reviewed with the BUTTON SEWING MACHINE OPERATOR/PA/Advanced Practice Nurse/Resident Physician. I agree with the documented findings, disposition and treatment plan as described except to the extent set forth below.
[2016-10-14] MEDS ORDERED: Levofloxacin 500 MG/100 ML 500 MG/100 ML BAG IVPB SCH (21:00)
[2016-10-15] MEDS: Insulin LISPRO 300 UNITS/3 ML VIAL SQ SCH ×2 (00:11→06:11)
[2016-10-15] MEDS: Insulin DETEMIR 100 UNIT/ML X5UNITS SQ SCH ×2 (00:11→09:54)
[2016-10-15] MEDS: MetroNIDAZOLE 500 MG/100 ML 500 MG/100 ML BAG IVPB SCH ×3 (00:12→10:25)
[2016-10-15] MEDS: D5% in 0.9% NACL 1,000 ML IVC SCH (04:03)
[2016-10-15 06:15] LABS: BUN/Creatinine Ratio 9 (6-26); Blood Urea Nitrogen 7 mg/dL (7-20); Calcium 8.9 mg/dL (8.6-10.8); Carbon Dioxide 29 mEq/L (19-29); Chloride 101 mEq/L (98-109); Glucose 140 mg/dL (70-99); Magnesium 1.6 mg/dL (1.6-2.6); Osmolality,Calculated 286 (280-300); Phosphorous 3.6 mg/dL (2.3-4.7); Potassium 3.6 mEq/L (3.5-4.5); Sodium 138 mEq/L (136-145); eGFR For African Americans > 60 (> 60); eGFR For Non-African Americans > 60 (> 60)
[2016-10-15] MEDS: Venlafaxine XR (24 HR) 150 MG CAP.ER.24H PO SCH (09:44)
[2016-10-15] MEDS: Aspirin 81 MG TAB.CHEW PO SCH (09:44)
[2016-10-15] MEDS: Gabapentin 400 MG CAPSULE PO SCH (09:44)
[2016-10-15 10:18] VITALS: BP 142/72
[2016-10-15] MEDS ORDERED: metroNIDAZOLE 500 MG TABLET PO ONE (10:23)
--- NOTE | 2016-10-15 10:26 | General Surgery Progress Note ---
Date of Encounter: 10/15/16 Time of Encounter: 10:23 - Assessment and Plan (1) Diverticulitis Current Visit: Yes Status: Acute Advance to low residue diet and continue for the next 6 weeks Transition to oral antibiotics for the next 10 days F/U as scheduled in the outpatient surgery office with Dr. Tatum- see instructions Qualifiers: Diverticulitis site: large intestine Diverticulitis bleeding: without bleeding Diverticulitis complication: without perforation or abscess Qualified Code(s): K57.32 - Diverticulitis of large intestine without perforation or abscess without bleeding (2) Diabetes mellitus, type II Current Visit: Yes Status: Chronic Qualifiers: Diabetes mellitus complication status: with neurologic complications Diabetes mellitus complication detail: with polyneuropathy Diabetes mellitus [facility] insulin use: with regional intermodal truck driver use Qualified Code(s): E11.42 - Type 2 diabetes mellitus with diabetic polyneuropathy (3) Morbid obesity Current Visit: Yes Status: Chronic Qualifiers: Obesity type: due to excess calories Qualified Code(s): E66.01 - Morbid ( severe) obesity due to excess calories (4) EMILY on CPAP Current Visit: Yes Status: Chronic (5) Chronic back pain Current Visit: No Status: Chronic Qualifiers: Back pain location: low back pain Back pain laterality: midline Sciatica presence: without sciatica Qualified Code(s): M54.5 - Low back pain Subjective Patient reports: no new complaints, feels better, still having pain, pain is less, tolerating liquids well, voiding w/o difficulty, flatus, afebrile Objective Vital Signs - Last 8 Hours Temp Pulse Resp BP Pulse Ox 10/15/16 10:13 98.9 F 87 17 142/72 96 10/15/16 07:33 18 93 L 10/15/16 06:41 99.2 F 62 17 122/63 98 10/15/16 04:41 16 97 10/15/16 04:40 98.9 F 96 18 124/77 94 L Intake and Output 10/14/16 10/15/16 10/15/16 23:59 07:59 15:59 Intake Total 1120 / 1120 2160 / 2160 1220 / 1220 Output Total 500 / 500 2100 / 2100 0 / 0 Balance 620 / 620 60 / 60 1220 / 1220 Intake: IV Fluids 200 / 200 1100 / 1100 500 / 500 D5% And 0.9% Nacl 1000 Ml 1000 / 1000 500 / 500 1,000 ML @ 100 mls/hr IVC .Q10H JENNIE Rx#: [id number] Levaquin 500mg/100mL 500 100 / 100 mg In 100 ml @ 100 mls/hr IVPB Q24H JENNIE Rx#: [id number] Flagyl 500 MG/100 ML 500 100 / 100 100 / 100 mg In 100 ml @ 100 mls/hr IVPB Q8HR JENNIE Rx#: [id number] Oral 920 / 920 1060 / 1060 720 / 720 Output: Urine 500 / 500 2100 / 2100 0 / 0 Other: Meal ice chips Breakfast # Voids 1 Weight 133.4 kg Blood Glucose* 136 115 Patient Weight 10/15/16 23:59 Weight 133.4 kg - General physical appearance well developed, well nourished, no distress - Eyes normal ocular movement - ENT normal mucosa, atraumatic, normocephalic - Neck Neck exam: trachea midline - Respiratory normal respiratory effort, clear to auscultation - Cardiovascular Cardiovascular exam: Present: RRR - Abdomen Abdomen: Present: bowel sounds present, soft, tender (minimal, LLQ) Abdominal Tenderness: LLQ - Integumentary no rash, no growths - Neurologic CN 2-12 grossly intact - Musculoskeletal normal gait, normal posture - Psychiatric oriented to time, oriented to person, oriented to place, speech is normal, memory intact - Labs 10/14/16 05:03 10/15/16 05:24 Diabetes panel 10/15/16 Range/Units 05:24 Sodium 138 (136-145) mEq/L Potassium 3.6 D (3.5-4.5) mEq/L Chloride 101 (98-109) mEq/L Carbon Dioxide 29 (19-29) mEq/L BUN 7 (7-20) mg/dL Creatinine 0.75 (0.57-1.11) mg/dL Glucose 140 H (70-99) mg/dL Calcium 8.9 (8.6-10.8) mg/dL Calcium panel 10/15/16 Range/Units 05:24 Calcium 8.9 (8.6-10.8) mg/dL Phosphorus 3.6 (2.3-4.7) mg/dL Pituitary panel 10/15/16 Range/Units 05:24 Sodium 138 (136-145) mEq/L Potassium 3.6 D (3.5-4.5) mEq/L Chloride 101 (98-109) mEq/L Carbon Dioxide 29 (19-29) mEq/L BUN 7 (7-20) mg/dL Creatinine 0.75 (0.57-1.11) mg/dL Glucose 140 H (70-99) mg/dL Calcium 8.9 (8.6-10.8) mg/dL Adrenal panel 10/15/16 Range/Units 05:24 Sodium 138 (136-145) mEq/L Potassium 3.6 D (3.5-4.5) mEq/L Chloride 101 (98-109) mEq/L Carbon Dioxide 29 (19-29) mEq/L BUN 7 (7-20) mg/dL Creatinine 0.75 (0.57-1.11) mg/dL Glucose 140 H (70-99) mg/dL Calcium 8.9 (8.6-10.8) mg/dL Consult Discharge Plan - Plan Additional Instructions: Low residue diet for 6 weeks Referrals: Jostin Tatum MD [Partnered Physician] - 10/28/16 2:05 pm (hospital follow- up) Zeyad Jules MD [Primary Care Provider] - Prescriptions: Levofloxacin [Levaquin] 500 mg PO DAILY #10 tablet MetroNIDAZOLE [Flagyl] 500 mg PO TID #30 tablet
--- NOTE | 2016-10-15 11:58 | Discharge Summary ---
Date of Encounter: 10/15/16 Time of Encounter: 11:55 - Discharge Diagnosis (1) Diverticulitis Priority: Primary Status: Acute Qualifiers: Diverticulitis site: large intestine Diverticulitis bleeding: without bleeding Diverticulitis complication: without perforation or abscess Qualified Code(s): K57.32 - Diverticulitis of large intestine without perforation or abscess without bleeding (2) Depression Priority: Secondary Status: Chronic Qualifiers: Depression Type: unspecified Qualified Code(s): F32.9 - Major depressive disorder, single episode, unspecified (3) Morbid obesity Priority: Secondary Status: Chronic Qualifiers: Obesity type: due to excess calories Qualified Code(s): E66.01 - Morbid ( severe) obesity due to excess calories (4) COPD (chronic obstructive pulmonary disease) Priority: Secondary Status: Chronic Qualifiers: COPD type: unspecified COPD Qualified Code(s): J44.9 - Chronic obstructive pulmonary disease, unspecified (5) Diabetes mellitus, type II Priority: Secondary Status: Chronic Qualifiers: Diabetes mellitus complication status: with neurologic complications Diabetes mellitus complication detail: with polyneuropathy Diabetes mellitus terminal make up operator insulin use: with terminal make up operator use Qualified Code(s): E11.42 - Type 2 diabetes mellitus with diabetic polyneuropathy (6) EMILY on CPAP Priority: Secondary Status: Chronic - Discharge Medications Prescriptions: Levofloxacin [Levaquin] 500 mg PO DAILY #10 tablet MetroNIDAZOLE [Flagyl] 500 mg PO TID #30 tablet Walker W Wheels [WHEELED WALKER] 1 each .ROUTE AD #1 each Home Medications: Aspirin 81 mg PO DAILY 02/01/16 [History] Gabapentin [Neurontin] 400 mg PO BID 02/01/16 [History] Levothyroxine [Synthroid] 50 mcg PO DAILY 02/01/16 [History] Lisinopril [Zestril] 10 mg PO DAILY 02/01/16 [History] Oxycodone HCl/Acetaminophen [Percocet 5-325 mg Tablet] 1 tab PO BID PRN [History] Venlafaxine XR (24 HR) [Effexor Xr] 300 mg PO DAILY 02/01/16 [History] Albuterol Sulfate [Ventolin Hfa] 2 puff IH Q4H PRN 02/03/16 [History] Cholecalciferol (Vitamin D3) [Vitamin D3] 5,000 unit PO DAILY 02/03/16 [History] Cyclobenzaprine [Flexeril] 10 mg PO TID PRN 02/03/16 [History] Omeprazole [PriLOSEC] 40 mg PO DAILY 02/03/16 [History] Vitamin B Complex 1 each PO DAILY 02/03/16 [History] Albuterol Neb [Proventil Neb] 2.5 mg IH TID PRN 06/29/16 [History] LORazepam [Ativan] 0.5 mg PO BID PRN 06/29/16 [History] Docusate [Colace] 100 mg PO DAILY 10/13/16 [History] Pioglitazone HCl [Actos] 45 mg PO DAILY 10/13/16 [History] Insulin NPH Hum/Reg Insulin Hm [Novolin 70-30 100 Unit/ml Vial] 25 unit SQ BID # 0 10/15/16 [Rx] Levofloxacin [Levaquin] 500 mg PO DAILY #10 tablet 10/15/16 [Rx] MetroNIDAZOLE [Flagyl] 500 mg PO TID #30 tablet 10/15/16 [Rx] Walker W Wheels [WHEELED WALKER] 1 each .ROUTE AD #1 each 10/15/16 [Rx] Allergies/Adverse Reactions: Allergies ibuprofen Allergy (Verified 02/01/16 23:52) Hives Penicillins [PCN] Allergy (Verified 02/01/16 23:52) Hives Ikmjthe-Mic-Cgx Reductase Inhibitor [Statins] Allergy (Verified 10/13/16 19:54) See Comments Sulfa (Sulfonamide Antibiotics) Allergy (Verified 02/01/16 23:52) Hives Nortriptyline [From Pamelor] Adverse Reaction (Verified 02/01/16 23:52) Agitated simvastatin [From Zocor] Adverse Reaction (Verified 02/01/16 23:52) Muscle Pain Date of admission: 10/13/16 22:47 Primary care physician: Zeyad Jules MD Consults: 10/14/16 00:14 Consult to Pastoral Services [CONS] Routine Comment: 10/14/16 06:49 Consult to Surgery [CONS] Routine Consulting Provider: [facility] Reason for Consult: Acute diverticulitis Time Notified: 06:49 Call Completed: Yes 10/14/16 10:48 Consult to Occupational Therapy [CONS] Routine Comment: Evaluate, develop and implement POC Consult to Physical Therapy [CONS] Routine Comment: Evaluate, develop and implement POC Consult to Representative Personal Service [CONS] Routine Reason for SW Consult: Discharge planning 10/14/16 13:47 consult to tower excavator operator [Consult to Nutrition] [CONS] Routine Comment: Teach about low residue diet Consulting Provider: NUTRITION Reason for Dietary Consult: Diet Education Discharging clinician: Saige Del Rio Anticipated date of discharge: 10/15/16 - Patient Status Disposition: Home, Self-Care Condition: Good Functional capacity at discharge: uses cane/walker Overall status at discharge: patient is progressing back to baseline - Discharge Instructions Follow Up With: Nan Velasco MD [Partnered Physician] - 03/24/17 9:00 am Jostin Tatum MD [Partnered Physician] - 10/28/16 2:05 pm (hospital follow- up) Zeyad Jules MD [Primary Care Provider] - Additional Instructions: Low residue diet for 6 weeks - Diet and Activity Activity: resume usual activities as tolerated Diet: diabetic diet, low fat, low cholesterol, low salt diet, other (low fiber diet) Hospital course: Ms. Bran is a 60 year old female with the above medical problems, admitted with acute left lower abdominal pain. CT abdomen/pelvis done in the emergency room showed acute sigmoid diverticulitis. She was kept nothing by mouth and started on IV hydration and IV antibiotics-ciprofloxacin and Flagyl. Surgery was consulted and agreed with the management. Patient's symptoms were gradually well controlled and she was able to tolerate oral diet. Physical therapy evaluation was done and recommended outpatient physical therapy. She is provided with a prescription for a front-wheeled walker. She is medically stable for discharge with oral antibiotics and was recommended to be on low fiber, low fat diet for the first few days after discharge before switching back to high fiber, low-fat and diabetic diet. - Time Spent with Patient Total time spent providing and/or coordinating discharge services: Greater than 30 minutes (45 min) - Constitutional Vitals: Temp Pulse Resp BP Pulse Ox 98.9 F 87 17 142/72 96 10/15/16 10:13 10/15/16 10:13 10/15/16 10:13 10/15/16 10:13 10/15/16 10:45 General appearance: Present: A&O X 3, morbidly obese, answers questions appropriately - Cardiovascular Cardiovascular exam: Present: RRR, +S1, +S2. Absent: diastolic murmur, gallop, rubs, systolic murmur - GI/Abdominal GI/Abdominal exam: Present: normal bowel sounds, soft (minimal tenderness to deep palpation in LLQ), no peritoneal signs. Absent: distended, tenderness
== END 2016-10-15 13:00 | disposition home or self-care (01) ==
LOC: EMEROO 19:26 → 3ANU 19:26
PROVIDERS: ADMIT Internal Medicine; ATTEND Internal Medicine